=== PATIENT | male | born 1965 | race Caucasian/White ===

== ENCOUNTER 2016-09-11 08:29 | Emergency (ER) | payer OTHER, SELFPAY ==
[2016-09-11] MEDS ORDERED: Nitroglycerin 2% Ointment 1 INCH/1 GM Packet ONE (08:41)
[2016-09-11 08:47] LABS: #Basophils 0.1 thou/uL (0.0-0.2); #Eosinphils 0.2 thou/uL (0.0-0.7); #Lymphocytes 2.1 thou/uL (1.20-3.40); #Monocytes 0.7 thou/uL (0.11-0.59); #Neutrophils 6.2 thou/uL (1.40-6.50); %Basophils 1.3 % (0.0-1.0); %Eosinophils 1.8 % (0.0-10.0); %Lymphocytes 22.6 % (21.0-51.0); %Monocytes 7.3 % (0.0-10.0); %Neutrophils 66.9 % (42.0-75.0); Hemoglobin 14.9 g/dL (14.0-18.0); Mean Corpuscular HGB CONC 31.5 g/dL (32.0-36.0); Mean Corpuscular Hemoglobin 27.2 pg (27.0-31.0); Mean Corpuscular Volume 86.3 fl (80.0-94.0); Mean Platelet Volume 8.4 fL (7.4-10.4); Platelet Count 187 thou/uL (130-400); RBC Distribution Width 14.5 % (11.5-14.5); Red Blood Cell (RBC) Count 5.46 mill/uL (4.70-6.10); White Blood Cell (WBC) Count 9.3 thou/uL (4.8-10.8)
[2016-09-11] MEDS ORDERED: Ondansetron HCl/PF 4 MG/2 ML Vial ONE (08:50)
[2016-09-11] MEDS ORDERED: Metoprolol Tartrate 5 MG/5 ML VIAL ONE (08:50)
[2016-09-11 09:01] LABS: ALT (SGPT) 37 U/L (0-55); AST (SGOT) 30 U/L (5-34); Albumin 4.2 g/dL (3.5-5.0); Alkaline Phosphatase 122 U/L (40-150); Anion Gap 15 mmol/L (10-20); BUN (Urea Nitrogen) 20 mg/dL (8.9-20.6); Bilirubin, Total 1.1 mg/dL (0.2-1.2); Calc. Creatinine Clearance 0 mL/min (70-130); Calcium 9.7 mg/dL (7.8-10.44); Carbon Dioxide 26 mmol/L (22-29); Chloride 104 mmol/L (98-107); Estimated GFR-MDRD 46; Globulin 3.4 g/dL (2.4-3.5); Glucose 133 mg/dL (70-105); Lipase 20 U/L (8-78); Potassium 4.6 mmol/L (3.5-5.1); Protein, Total 7.6 g/dL (6.0-8.3); Sodium 140 mmol/L (136-145)
[2016-09-11 09:03] LABS: CKMB 6.1 ng/mL (0-6.6); Troponin I 0.049 ng/mL (< 0.028)
[2016-09-11] MEDS ORDERED: Furosemide 40 MG/4 ML VIAL ONE (09:32)
--- NOTE | 2016-09-11 21:56 | RAD ---
PORTABLE CHEST 09/11/16 No prior films were available for comparison. The heart is mildly enlarged. There are no congestive findings or pleural effusions. The right lung is clear. I believe the left lung is clear as well. A little haziness over the left base is probably due to overlying soft tissues, rather than an infiltrate. There are no effusions. The trachea is mi dline. IMPRESSION: Cardiomegaly. POS: HOME
== END 2016-09-11 10:10 | disposition short-term general hospital (02) ==
LOC: BURERS 08:29
DX: I11.0 Hypertensive heart disease with heart failure (principal); I50.21 Acute systolic (congestive) heart failure; F17.210 Nicotine dependence, cigarettes, uncomplicated
CPT/HCPCS: 36415; 71010; 80053; 82553; 83690; 83880; 84484; 85025; 93005; 94760; 96374; 96375; J1940; J2405

== ENCOUNTER 2020-04-28 17:35 | Emergency (ER) | payer MEDICARE, SELFPAY ==
[2020-04-28] MEDS ORDERED: Aspirin Chewable 81 MG TAB ONE ×2 (18:06)
[2020-04-28 18:32] LABS: #Basophils 0.1 thou/uL (0.0-0.2); #Eosinphils 0.1 thou/uL (0.0-0.7); #Lymphocytes 1.6 thou/uL (1.20-3.40); #Monocytes 0.7 thou/uL (0.11-0.59); %Eosinophils 1.2 % (0.0-10.0); %Lymphocytes 15.6 % (21.0-51.0); %Monocytes 6.8 % (0.0-10.0); %Neutrophils 75.4 % (42.0-75.0); Hemoglobin 14.9 g/dL (14.0-18.0); Mean Corpuscular HGB CONC 30.9 g/dL (32.0-36.0); Mean Corpuscular Hemoglobin 27.5 pg (27.0-31.0); Mean Platelet Volume 11.7 fL (7.4-10.4); Platelet Count 147 thou/uL (130-400); RBC Distribution Width 14.9 % (11.5-14.5); Red Blood Cell (RBC) Count 5.42 mill/uL (4.70-6.10); White Blood Cell (WBC) Count 10.5 thou/uL (4.8-10.8)
[2020-04-28 18:49] LABS: ALT (SGPT) 29 U/L (8-55); AST (SGOT) 25 U/L (5-34); Albumin 4.1 g/dL (3.5-5.0); Alkaline Phosphatase 107 U/L (40-110); Anion Gap 18 mmol/L (10-20); BUN (Urea Nitrogen) 21 mg/dL (8.4-25.7); Bilirubin, Total 1.2 mg/dL (0.2-1.2); CK (CPK) 136 U/L (30-200); Calc. Creatinine Clearance 0 mL/min (70-130); Calcium 9.1 mg/dL (7.8-10.44); Carbon Dioxide 22 mmol/L (22-29); Chloride 99 mmol/L (98-107); Estimated GFR-MDRD 41; Globulin 3.5 g/dL (2.4-3.5); Glucose 289 mg/dL (70-105); Lipase 24 U/L (8-78); Potassium 3.8 mmol/L (3.5-5.1); Protein, Total 7.6 g/dL (6.0-8.3); Sodium 135 mmol/L (136-145)
[2020-04-28 19:06] LABS: CKMB 4.3 ng/mL (0-6.6)
--- NOTE | 2020-04-28 19:34 | RAD ---
PORTABLE CHEST 04/28/20 An AP portable film at 1849 is compared with a 07/29/17 study. The heart is enlarged, and is larger than before. There is some mild interstitial prominence to the l ungs. No large pleural effusions were seen. Median sternotomy sutures are noted from prior surgery. IMPRESSION: 1. Moderate cardiomegaly, slightly greater than in 2018. 2. Slight interstitial prominence in the lungs. Congestive failure is possible. Correlate wit h labs and exam. POS: HOME
--- NOTE | 2020-04-28 19:53 | CT ---
CT ANGIO OF THE CHEST WITH CONTRAST 04/28/20 A bolus of IV contrast was given then scanning of the chest followed with multiplanar MIP reconstruct ions. There is good opacification of the pulmonary arteries with no defects to suggest emboli. There is no evidence of aortic aneurysm or dissection. The heart is quite large. Diffuse interstitial prominence is seen throughout the lungs and there is a small right pleural effusion. Congestive failure seems li ezequiel. In addition to these findings, there is considerable hilar and mediastinal adenopathy in this patient . The right hilum is the most involved with a collection of nodes measuring up to 3.5 cm in size. Osei e of the inferior tracheobronchial nodes on the right measure up to 3.1 cm in size. The etiology for this is unknown. It could include infectious etiologies and lymphoproliferative diseases. I do not se e any focal mass in the lungs to explain this. Scans into the upper abdomen showed the liver to be slightly generous in size (not seen completely, b ut no focal lesions. The spleen is not enlarged. The visible portions of the pancreas were unremarkab le. Both adrenal glands are normal in appearance. IMPRESSION: 1. No evidence of pulmonary embolism. 2. Interstitial prominence and small right pleural effusion. CHF seems likely. 3. Hilar and mediastinal adenopathy, most prominent on the right side but present bilaterally. S ee above. Findings discussed with Dr. Dolan at 1939 on 04/28/20. POS: HOME
[2020-04-28] MEDS ORDERED: Nitroglycerin 2% Ointment 1 INCH/1 GM Packet ONE (20:19)
[2020-04-28] MEDS ORDERED: Furosemide 40 MG/4 ML VIAL ONE (20:19)
== END 2020-04-28 21:35 | disposition short-term general hospital (02) ==
LOC: BURERS 17:35
DX: I11.0 Hypertensive heart disease with heart failure (principal); I50.1 Left ventricular failure, unspecified; I25.10 Atherosclerotic heart disease of native coronary artery without angina pectoris; F17.210 Nicotine dependence, cigarettes, uncomplicated; R77.8 Other specified abnormalities of plasma proteins; R59.0 Localized enlarged lymph nodes; Z79.899 Other long term (current) drug therapy; Z79.82 Long term (current) use of aspirin; Z20.828 Contact with and (suspected) exposure to other viral communicable diseases
CPT/HCPCS: 71045; 71275; 80053; 82550; 82553; 83605; 83690; 83880; 84484; 85025; 85379; 87040; 93005; 94760; 96374; J1940

== ENCOUNTER 2021-12-10 03:18 | Emergency (ER) | payer MEDICARE ==
[2021-12-10] MEDS ORDERED: Iopamidol 370 76% 100 ML VIAL FS ONE (03:19)
[2021-12-10 04:30] LABS: Prothrombin Time 49.8 sec (12.0-14.7)
[2021-12-10 04:33] LABS: #Basophils 0.1 thou/uL (0.0-0.2); #Lymphocytes 1.5 thou/uL (1.20-3.40); #Monocytes 0.8 thou/uL (0.11-0.59); #Neutrophils 6.2 thou/uL (1.40-6.50); %Basophils 0.6 % (0.0-1.0); %Eosinophils 0.5 % (0.0-10.0); %Lymphocytes 17.4 % (21.0-51.0); %Monocytes 8.7 % (0.0-10.0); %Neutrophils 72.8 % (42.0-75.0); Hemoglobin 12.8 g/dL (14.0-18.0); Mean Corpuscular HGB CONC 32.7 g/dL (32.0-36.0); Mean Corpuscular Hemoglobin 27.4 pg (27.0-31.0); Mean Corpuscular Volume 83.6 fL (78.0-98.0); Mean Platelet Volume 10.7 fL (7.4-10.4); Platelet Count 152 thou/uL (130-400); RBC Distribution Width 16.3 % (11.5-14.5); Red Blood Cell (RBC) Count 4.68 mill/uL (4.70-6.10); White Blood Cell (WBC) Count 8.6 thou/uL (4.8-10.8)
[2021-12-10 04:40] LABS: INR-International Normal Ratio 5.3
[2021-12-10 04:45] LABS: ALT (SGPT) 180 U/L (8-55); AST (SGOT) 136 U/L (5-34); Albumin 3.3 g/dL (3.5-5.0); Alkaline Phosphatase 123 U/L (40-110); Anion Gap 14 mmol/L (10-20); BUN (Urea Nitrogen) 32 mg/dL (8.4-25.7); Bilirubin, Total 1.8 mg/dL (0.2-1.2); Calc. Creatinine Clearance 0 mL/min (70-130); Calcium 8.2 mg/dL (7.8-10.44); Carbon Dioxide 21 mmol/L (22-29); Chloride 104 mmol/L (98-107); Globulin 2.8 g/dL (2.4-3.5); Glucose 145 mg/dL (70-105); Potassium 4.1 mmol/L (3.5-5.1); Protein, Total 6.1 g/dL (6.0-8.3); Sodium 135 mmol/L (136-145)
[2021-12-10 04:56] LABS: CKMB 5.7 ng/mL (0-6.6); Platelet Morphology Comment Appears Adequate; RBC Morphology Normal
[2021-12-10 05:29] LABS: SARS-CoV-2 NAA Rapid Test DETECTED (NotDetected)
== END 2021-12-10 05:56 | disposition short-term general hospital (02) ==
LOC: BURERS 03:18
DX: I26.99 Other pulmonary embolism without acute cor pulmonale (principal); I21.9 Acute myocardial infarction, unspecified; R79.1 Abnormal coagulation profile; U07.1 COVID-19; I13.0 Hypertensive heart and chronic kidney disease with heart failure and stage 1 through stage 4 chronic kidney disease, or unspecified chronic kidney disease; I50.9 Heart failure, unspecified; E11.22 Type 2 diabetes mellitus with diabetic chronic kidney disease; N18.30 Chronic kidney disease, stage 3 unspecified; I25.10 Atherosclerotic heart disease of native coronary artery without angina pectoris; Z86.73 Personal history of transient ischemic attack (TIA), and cerebral infarction without residual deficits; Z87.891 Personal history of nicotine dependence; Z79.899 Other long term (current) drug therapy; Z79.82 Long term (current) use of aspirin; Z79.84 Long term (current) use of oral hypoglycemic drugs
CPT/HCPCS: 36415; 71275; 80053; 82553; 83605; 83880; 84484; 85025; 85610; 85730; 93005; Q9967; U0002

== ENCOUNTER 2022-08-21 15:25 | Emergency (ER) | payer MEDICARE ==
[~2022-08-21 15:25] MED LIST: Iopamidol 370 76% 100 ML VIAL ONE
[2022-08-21 16:07] LABS: #Basophils 0.1 thou/uL (0.0-0.2); #Eosinphils 0.2 thou/uL (0.0-0.7); #Lymphocytes 1.6 thou/uL (1.20-3.40); #Monocytes 1.1 thou/uL (0.11-0.59); #Neutrophils 5.8 thou/uL (1.40-6.50); %Eosinophils 2.5 % (0.0-10.0); %Lymphocytes 17.8 % (21.0-51.0); %Monocytes 12.8 % (0.0-10.0); %Neutrophils 65.8 % (42.0-75.0); Hemoglobin 13.1 g/dL (14.0-18.0); Mean Corpuscular HGB CONC 32.2 g/dL (32.0-36.0); Mean Corpuscular Hemoglobin 23.8 pg (27.0-31.0); Mean Corpuscular Volume 73.9 fl (78.0-98.0); Mean Platelet Volume 10.4 fL (7.4-10.4); Platelet Count 221 10x3/uL (130-400); RBC Distribution Width 17.3 % (11.5-14.5); Red Blood Cell (RBC) Count 5.52 mill/uL (4.70-6.10); White Blood Cell (WBC) Count 8.9 10x3/uL (4.8-10.8)
[2022-08-21 16:20] LABS: ALT (SGPT) 13 U/L (8-55); AST (SGOT) 23 U/L (5-34); Alkaline Phosphatase 146 U/L (40-110); Anion Gap 20 mmol/L (10-20); BUN (Urea Nitrogen) 31 mg/dL (8.4-25.7); Bilirubin, Total 3.8 mg/dL (0.2-1.2); CK (CPK) 94 U/L (30-200); Calc. Creatinine Clearance 0 mL/min (70-130); Calcium 9.5 mg/dL (7.8-10.44); Carbon Dioxide 31 mmol/L (22-29); Chloride 87 mmol/L (98-107); Estimated GFR 57; Globulin 3.6 g/dL (2.4-3.5); Glucose 114 mg/dL (70-105); Large Platelets SLIGHT; MDiff Complete? YES; Magnesium 2.3 mg/dL (1.6-2.6); Microcytosis SLIGHT = 6-15 cells (100X) (0-5/hpf); Platelet Morphology Comment Appears Adequate; Protein, Total 7.6 g/dL (6.0-8.3); Sodium 135 mmol/L (136-145)
[2022-08-21] MEDS ORDERED: Lorazepam 2 MG/ML VIAL ONE (17:52)
[2022-08-21] MEDS ORDERED: Potassium Chloride 20 MEQ TAB ONE (17:56)
[2022-08-21] MEDS ORDERED: Thiamine HCl 200 MG/2 ML VIAL ONE (18:19)
== END 2022-08-21 19:51 | disposition short-term general hospital (02) ==
LOC: BURERS 15:25
DX: R17 Unspecified jaundice (principal); F10.20 Alcohol dependence, uncomplicated; E11.22 Type 2 diabetes mellitus with diabetic chronic kidney disease; I13.0 Hypertensive heart and chronic kidney disease with heart failure and stage 1 through stage 4 chronic kidney disease, or unspecified chronic kidney disease; N18.30 Chronic kidney disease, stage 3 unspecified; F17.210 Nicotine dependence, cigarettes, uncomplicated; Z79.82 Long term (current) use of aspirin; Z79.899 Other long term (current) drug therapy; Z79.84 Long term (current) use of oral hypoglycemic drugs
CPT/HCPCS: 71045; 74177; 80053; 80307; 82140; 82550; 83605; 83615; 83735; 83880; 85025; 96374; 96375; J2060; J3411; Q9967